=== PATIENT | female | born 1960 | race Asian ===

== ENCOUNTER 2019-10-06 06:53 | Inpatient (IN) | payer OTHER ==
[~2019-10-06] VITALS: Ht 144.8 cm; Wt 58.8 kg
[2019-10-06] MEDS ORDERED: ALBUTEROL/IPRATROPIUM 2.5MG/0.5MG, 3 ML ONE (07:21)
[2019-10-06] MEDS ORDERED: ONDANSETRON 2MG/ML, 2ML ONE (07:28)
[2019-10-06] MEDS ORDERED: ACETAMINOPHEN 500 MG TABLET ONE (07:28)
[2019-10-06] MEDS ORDERED: KETOROLAC 30 MG/1 ML ONE (07:28)
[2019-10-06] MEDS ORDERED: SODIUM CHLORIDE 0.9% 1,000ML IVBOLUS ONE ×2 (07:30→08:30)
[2019-10-06] MEDS ORDERED: ACETAMINOPHEN 500 MG TABLET PO ONE (07:30)
[2019-10-06] MEDS ORDERED: ALBUTEROL/IPRATROPIUM 2.5MG/0.5MG, 3 ML NPPB SCH (07:30)
[2019-10-06] MEDS ORDERED: ONDANSETRON 2MG/ML, 2ML IVPush ONE (07:30)
[2019-10-06] MEDS ORDERED: KETOROLAC 30 MG/1 ML IVPush ONE (07:30)
[2019-10-06 07:37] LABS: BASOPHILS # (AUTO) 0.02 x10^3/uL (0-0.1); BASOPHILS % (AUTO) 0 % (0-1); EOSINOPHILS # (AUTO) 0.15 x10^3/uL (0-0.4); EOSINOPHILS % (AUTO) 1 % (1-7); LYMPHOCYTES # (AUTO) 1.03 x10^3/uL (1-3.4); LYMPHOCYTES % (AUTO) 9 % (22-44); MD NO; MEAN CORPUSCULAR HEMOGLOBIN 25.7 pg (27.0-34.8); MEAN CORPUSCULAR HGB CONC 31.5 g/dL (32.4-35.8); MEAN CORPUSCULAR VOLUME 81.7 fL (80-100); MEAN PLATELET VOLUME 7.4 fL (7.4-10.4); MONOCYTES # (AUTO) 0.45 x10^3/uL (0.2-0.8); MONOCYTES % (AUTO) 4 % (2-9); NEUTROPHILS # (AUTO) 9.76 x10^3/uL (1.8-6.8); NEUTROPHILS % (AUTO) 86 % (42-75); PLATELET COUNT 286 x10^3/uL (130-400); RED BLOOD COUNT 4.84 x10^6/uL (3.82-5.3); RED CELL DISTRIBUTION WIDTH 17.5 % (9.6-15.2)
[2019-10-06 07:48] LABS: ALBUMIN 3.4 g/dL (3.4-5.0); ANION GAP 8 mmol/L (5-15); CALCIUM 8.1 mg/dL (8.5-10.1); CHLORIDE 104 mmol/L (98-107); CREATININE 0.75 mg/dL (0.55-1.02)
[2019-10-06 07:52] LABS: TROPONIN I 0.037 ng/mL (0.000-0.045)
[2019-10-06 08:15] LABS: RAPID INFLUENZA A Negative (Negative); RAPID INFLUENZA B Negative (Negative)
[2019-10-06] MEDS ORDERED: PLEASE ENTER ALLERGIES MC SCH (08:30)
[2019-10-06] MEDS ORDERED: AZITHROMYCIN 500 MG in SODIUM CHLORIDE 0.9% 250 ML IV ONE (08:30)
[2019-10-06] MEDS ORDERED: ALBUTEROL/IPRATROPIUM 2.5MG/0.5MG, 3 ML NPPB ONE (08:30)
[2019-10-06] MEDS ORDERED: CEFTRIAXONE PMX 1GM/50ML 50 ML IVPB ONE (08:30)
[2019-10-06] MEDS ORDERED: CEFTRIAXONE PMX 1GM/50ML 50 ML ONE (08:41)
[2019-10-06 09:21] LABS: MICROSCOPIC AUTO
[2019-10-06] MEDS ORDERED: LABETALOL 5MG/ML, 20ML IVPush PRN (10:00)
[2019-10-06] MEDS ORDERED: hydrALAzine 20 MG/ML, 1ML IVPush PRN (10:00)
[2019-10-06] MEDS ORDERED: ONDANSETRON 2MG/ML, 2ML IVPush PRN (10:00)
[2019-10-06] MEDS ORDERED: DOXYCYCLINE 100MG TABLET PO SCH (10:00)
[2019-10-06] MEDS ORDERED: ACETAMINOPHEN 325 MG TABLET PO PRN (10:00)
[2019-10-06] MEDS ORDERED: ENOXAPARIN 40 MG/0.4 ML SQ SCH (10:00)
[2019-10-06] MEDS ORDERED: PROMETHAZINE 25 MG/ML, 1ML IM PRN (10:00)
[2019-10-06] MEDS: CEFTRIAXONE PMX 1GM/50ML 50 ML IV SCH (10:00)
[2019-10-06] MEDS ORDERED: ENOXAPARIN 40 MG/0.4 ML ONE (12:07)
[2019-10-06] MEDS ORDERED: DOXYCYCLINE 100MG TABLET ONE (12:08)
[2019-10-06] MEDS: SODIUM CHLORIDE 0.9% 1,000 ML IV SCH ×2 (12:14→23:00)
[2019-10-06 12:27] LABS: TROPONIN I 0.105 ng/mL (0.000-0.045)
[2019-10-06 13:17] VITALS: BP 138/85
[2019-10-06] MEDS ORDERED: MORPHINE SULFATE 4 MG/ML, 1ML IVPush PRN (14:00)
[2019-10-06] MEDS: CALCIUM CARBONATE 500 MG TABLET PO SCH ×2 (14:13→20:17)
[2019-10-06 17:24] LABS: TROPONIN I 0.174 ng/mL (0.000-0.045)
[2019-10-06 20:12] VITALS: BP 166/96
[2019-10-06 21:15] VITALS: BP 137/77
[2019-10-06 23:23] LABS: TROPONIN I 0.307 ng/mL (0.000-0.045)
[2019-10-07 00:31] VITALS: BP 130/80
[2019-10-07] MEDS: DOXYCYCLINE 100 MG in DEXTROSE 5% 250 ML IV SCH ×2 (00:50→14:54)
[2019-10-07 06:39] LABS: BASOPHILS # (AUTO) 0.01 x10^3/uL (0-0.1); BASOPHILS % (AUTO) 0 % (0-1); EOSINOPHILS # (AUTO) 0.24 x10^3/uL (0-0.4); EOSINOPHILS % (AUTO) 2 % (1-7); LYMPHOCYTES # (AUTO) 1.42 x10^3/uL (1-3.4); LYMPHOCYTES % (AUTO) 14 % (22-44); MD NO; MEAN CORPUSCULAR VOLUME 81.2 fL (80-100); MEAN PLATELET VOLUME 8.1 fL (7.4-10.4); MONOCYTES % (AUTO) 6 % (2-9); NEUTROPHILS # (AUTO) 8.21 x10^3/uL (1.8-6.8); NEUTROPHILS % (AUTO) 78 % (42-75); PLATELET COUNT 254 x10^3/uL (130-400); RED BLOOD COUNT 4.71 x10^6/uL (3.82-5.3)
[2019-10-07 06:54] LABS: ALBUMIN 3.4 g/dL (3.4-5.0); ANION GAP 7 mmol/L (5-15); CALCIUM 8.5 mg/dL (8.5-10.1); CHLORIDE 107 mmol/L (98-107)
[2019-10-07 06:59] LABS: ALANINE AMINOTRANSFERASE 80 U/L (12-78); ALKALINE PHOSPHATASE 185 U/L (45-117); BILIRUBIN,TOTAL 0.5 mg/dL (0.2-1.0); CREATININE 0.56 mg/dL (0.55-1.02)
[2019-10-07 07:03] VITALS: BP 145/78
[2019-10-07] MEDS ORDERED: ACETAMINOPHEN 325 MG TABLET PO PRN (08:30)
[2019-10-07 08:55] LABS: TROPONIN I 0.543 ng/mL (0.000-0.045)
[2019-10-07] MEDS: CARVEDILOL 3.125 MG TABLET PO SCH ×2 (09:13→18:33)
[2019-10-07] MEDS: CEFTRIAXONE PMX 1GM/50ML 50 ML IV SCH (09:13)
[2019-10-07] MEDS: CALCIUM CARBONATE 500 MG TABLET PO SCH ×2 (09:13→21:26)
[2019-10-07] MEDS: SODIUM CHLORIDE 0.9% 1,000 ML IV SCH ×2 (09:14→23:33)
[2019-10-07] MEDS ORDERED: HEPARIN 25,000 UNITS/500ML PMX 500 ML IV PRN (11:30)
[2019-10-07] MEDS ORDERED: HEPARIN 5,000 UNITS/ML, 1ML IV ONE (11:30)
[2019-10-07] MEDS: HEPARIN 25,000 UNITS/500ML PMX 500 ML IV PRN (12:48)
[2019-10-07 12:56] VITALS: BP 119/74
[2019-10-07] MEDS: HEPARIN 5,000 UNITS/ML, 1ML IV PRN (19:20)
[2019-10-07 20:03] VITALS: BP 130/76
[2019-10-07] MEDS: ATORVASTATIN 80 MG TABLET PO SCH (21:25)
[2019-10-07] MEDS: BENZONATATE 100 MG CAPSULE PO PRN (21:25)
[2019-10-07] MEDS ORDERED: ALBUTEROL SULFATE 2.5 MG/3 ML NPPB PRN (22:30)
[2019-10-08 01:34] LABS: BASOPHILS # (AUTO) 0.04 x10^3/uL (0-0.1); BASOPHILS % (AUTO) 1 % (0-1); EOSINOPHILS # (AUTO) 0.29 x10^3/uL (0-0.4); EOSINOPHILS % (AUTO) 4 % (1-7); LYMPHOCYTES # (AUTO) 2.37 x10^3/uL (1-3.4); LYMPHOCYTES % (AUTO) 30 % (22-44); MD NO; MEAN CORPUSCULAR HEMOGLOBIN 25.8 pg (27.0-34.8); MEAN CORPUSCULAR HGB CONC 31.8 g/dL (32.4-35.8); MEAN CORPUSCULAR VOLUME 81.1 fL (80-100); MONOCYTES # (AUTO) 0.68 x10^3/uL (0.2-0.8); MONOCYTES % (AUTO) 9 % (2-9); NEUTROPHILS # (AUTO) 4.61 x10^3/uL (1.8-6.8); NEUTROPHILS % (AUTO) 58 % (42-75); PLATELET COUNT 257 x10^3/uL (130-400); RED CELL DISTRIBUTION WIDTH 17.9 % (9.6-15.2)
[2019-10-08 01:41] LABS: ALANINE AMINOTRANSFERASE 89 U/L (12-78); ALBUMIN 3.1 g/dL (3.4-5.0); ANION GAP 7 mmol/L (5-15); CALCIUM 8.7 mg/dL (8.5-10.1); CHLORIDE 110 mmol/L (98-107); CREATININE 0.52 mg/dL (0.55-1.02)
[2019-10-08 01:43] LABS: ALKALINE PHOSPHATASE 164 U/L (45-117); BILIRUBIN,TOTAL 0.5 mg/dL (0.2-1.0); TOTAL PROTEIN 7.3 g/dL (6.4-8.2)
[2019-10-08 01:45] VITALS: BP 109/70
[2019-10-08 01:49] LABS: TROPONIN I 0.649 ng/mL (0.000-0.045)
[2019-10-08] MEDS: HEPARIN 5,000 UNITS/ML, 1ML IV PRN ×2 (01:49→15:02)
[2019-10-08] MEDS: DOXYCYCLINE 100 MG in DEXTROSE 5% 250 ML IV SCH ×2 (02:45→15:02)
[2019-10-08 06:12] VITALS: BP 118/79
[2019-10-08] MEDS: BENZONATATE 100 MG CAPSULE PO PRN (06:13)
[2019-10-08] MEDS: ASPIRIN 325 MG TABLET PO SCH (06:13)
[2019-10-08] MEDS: CARVEDILOL 3.125 MG TABLET PO SCH ×2 (06:14→18:20)
[2019-10-08 08:26] LABS: TROPONIN I 0.583 ng/mL (0.000-0.045)
[2019-10-08] MEDS: CALCIUM CARBONATE 500 MG TABLET PO SCH ×2 (09:23→21:02)
[2019-10-08] MEDS: CEFTRIAXONE PMX 1GM/50ML 50 ML IV SCH (09:24)
[2019-10-08] MEDS ORDERED: ENOXAPARIN 40 MG/0.4 ML SQ SCH (10:00)
[2019-10-08 12:11] VITALS: BP 136/88
[2019-10-08] MEDS ORDERED: NYQUIL PO PRN (16:00)
[2019-10-08] MEDS ORDERED: MELATONIN 3 MG TABLET PO PRN (16:00)
[2019-10-08 18:44] VITALS: BP 133/80
[2019-10-08 21:00] VITALS: BP 124/81
[2019-10-08] MEDS: ATORVASTATIN 80 MG TABLET PO SCH (21:02)
[2019-10-09] MEDS: HEPARIN 25,000 UNITS/500ML PMX 500 ML IV PRN
[2019-10-09] MEDS: DOXYCYCLINE 100 MG in DEXTROSE 5% 250 ML IV SCH (02:42)
[2019-10-09 03:18] VITALS: BP 127/85
[2019-10-09 05:19] VITALS: BP 127/82
[2019-10-09] MEDS: ASPIRIN 325 MG TABLET PO SCH (05:20)
[2019-10-09] MEDS: CARVEDILOL 3.125 MG TABLET PO SCH (05:20)
[2019-10-09 07:08] VITALS: BP 115/79
[2019-10-09 09:00] LABS: BASOPHILS # (AUTO) 0.03 x10^3/uL (0-0.1); BASOPHILS % (AUTO) 0 % (0-1); EOSINOPHILS # (AUTO) 0.47 x10^3/uL (0-0.4); EOSINOPHILS % (AUTO) 5 % (1-7); LYMPHOCYTES # (AUTO) 2.63 x10^3/uL (1-3.4); LYMPHOCYTES % (AUTO) 29 % (22-44); MD NO; MEAN CORPUSCULAR HEMOGLOBIN 25.9 pg (27.0-34.8); MEAN CORPUSCULAR HGB CONC 31.6 g/dL (32.4-35.8); MEAN CORPUSCULAR VOLUME 81.9 fL (80-100); MEAN PLATELET VOLUME 8.7 fL (7.4-10.4); MONOCYTES # (AUTO) 0.53 x10^3/uL (0.2-0.8); MONOCYTES % (AUTO) 6 % (2-9); NEUTROPHILS # (AUTO) 5.34 x10^3/uL (1.8-6.8); NEUTROPHILS % (AUTO) 59 % (42-75); PLATELET COUNT 274 x10^3/uL (130-400); RED BLOOD COUNT 4.74 x10^6/uL (3.82-5.3); RED CELL DISTRIBUTION WIDTH 17.6 % (9.6-15.2)
[2019-10-09] MEDS ORDERED: DOXYCYCLINE 100MG TABLET PO SCH (09:00)
[2019-10-09] MEDS ORDERED: AMOXICILLIN 500 MG CAPSULE PO SCH (09:00)
[2019-10-09] MEDS: CALCIUM CARBONATE 500 MG TABLET PO SCH (09:17)
[2019-10-09] MEDS ORDERED: SODIUM CHLORIDE 0.9% 1,000 ML IV SCH (09:34)
[2019-10-09] MEDS ORDERED: AMOX-291 PO (11:08)
[2019-10-09] MEDS ORDERED: ASPI81TA45 PO (11:08)
[2019-10-09] MEDS ORDERED: CARV3.1212 PO (11:08)
[2019-10-09] MEDS ORDERED: DOXY100T PO (11:08)
[2019-10-09] MEDS ORDERED: ATOR-2 PO (11:08)
[2019-10-09 12:44] VITALS: BP 160/97
== END 2019-10-09 13:30 | disposition home or self-care (01) | DRG 871 ==
LOC: ED 07:16 → EDIP 09:34 → 4EST 13:06 → DCLOUNGE 10-09 13:14
PROVIDERS: ADMIT Internal Medicine; ATTEND Internal Medicine
DX: A41.9 Sepsis, unspecified organism (principal); J15.9 Unspecified bacterial pneumonia; J96.00 Acute respiratory failure, unspecified whether with hypoxia or hypercapnia; I21.A1 Myocardial infarction type 2; E87.2 Acidosis; E83.51 Hypocalcemia; I10 Essential (primary) hypertension; R04.0 Epistaxis; R65.20 Severe sepsis without septic shock; Z82.49 Family history of ischemic heart disease and other diseases of the circulatory system; Z87.891 Personal history of nicotine dependence
CPT/HCPCS: 36415; 84145; 87400; 96361; 96365; 96372; 96375; 99285; J7620; 71046; 80048; 80053; 80074; 81001; 82040; 83605; 83880; 84484; 85025; 85520; 87040; 93005; 93306; 94640; G0378; J0456; J0696; J1644; J1650; J1885; J2405; J7060; J7030; J7050

== ENCOUNTER → 2019-12-20 | Outpatient (CLI) | payer OTHER ==
[~2019-12-20] MED LIST: AMOX-291 PO; ASPI81TA45 PO; ATOR-2 PO; CARV3.1212 PO; DOXY100T PO
== END | disposition home or self-care (01) ==
LOC: CFH 07:24
PROVIDERS: ATTEND Physician Assistant Medical
DX: R07.89 Other chest pain (principal); R42 Dizziness and giddiness
CPT/HCPCS: 78452; 93017; A9502